=== PATIENT | male | born 1965 | race Caucasian/White ===

== ENCOUNTER 2019-04-13 17:15 | Emergency (ER) | payer OTHER ==
[2019-04-13 17:41] VITALS: BP 144/115; TEMP 97.7; O2SAT 96
--- NOTE | 2019-04-13 17:48 | ED.PDOC ---
History of Present Illness - General Chief Complaint: Skin/Abrasion/Tear Stated Complaint: Skin irritation to R wrist Time Seen by Provider: 04/13/19 17:19 Source: patient, RN notes reviewed, Vital Signs reviewed, RN/MD Additional Information: Patient presents for evaluation of rash to the RUE that occurred two days ago. He notes that the rash is improving. He denies any fevers, chills, nausea, or vomiting. He denies any new lotions, soaps, or detergents. He was outside working and brushed against some weeds prior to the rash starting. He notes that he has used topical hydrocortisone and aloe, which has helped improve the rash. He otherwise denies any complaints. - History of Present Illness Allergies/Adverse Reactions: Allergies Penicillins Allergy (Verified 04/13/19 17:41) Anaphylaxis Home Medications: Ambulatory Orders Aspirin [Aspirin Adult Low Dose] 81 mg PO DAILY 04/13/19 Cinnamon 2,000 mg PO BID 04/13/19 Metformin HCl [Glucophage] 1,000 mg PO BID 04/13/19 Review of Systems - Review of Systems Constitutional: Denies: chills, fever EENTM: States: no symptoms reported Respiratory: Denies: cough, short of breath Cardiology: Denies: chest pain Gastrointestinal/Abdominal: Denies: abdominal pain, nausea, vomiting Skin: States: rash Past Medical History (General) - Patient Medical History Hx Stroke: No Hx Asthma: Yes Hx Congestive Heart Failure: No Hx Diabetes: Yes - Vaccination History Hx Tetanus, Diphtheria Vaccination: - 2011 Hx Influenza Vaccination: Yes - 2017 Hx Pneumococcal Vaccination: Yes - 2013 - Social History Hx Tobacco Use: No Hx Alcohol Use: No Family Medical History - Family History Father Family History: No Known Living Status: Still Living Physical Exam - Physical Exam General Appearance: Alert, Comfortable, No apparent distress Neck: full range of motion, supple, normal inspection Cardiovascular/Chest: regular rate, rhythm, no edema, no gallop, no JVD, no murmur Respiratory: lungs clear, normal breath sounds, no respiratory distress, no accessory muscle use Gastrointestinal/Abdominal: non tender, soft Neurologic: alert, normal mood/affect, oriented x 3 Skin Exam: warm/dry Skin Problem Location: upper extremities - Right forearm Skin Character: rash, scales - red, scaly rash in a 5x6cm raised distribution. no surrounding erythema. No fluctuance or induration Progress - Progress Progress: DDx: Contact Dermatitis, Cellulitis, Poison Nimisha, drug reaction, allergic reaction 04/13/19 17:49 Patient presents for evaluation of rash to the RUE. He was overall well appearing and non-toxic. He has no systemic symptoms and denies fevers/chills. He has no recent exposures except for what he brushed into. His symptoms do not suggest an allergic reaction. He has no spreading of the rash elsewhere to suggest poison nimisha. His symptoms are suggestive of contact dermatitis as it is localized to the region that brushed against the shrubbery. He declined prednisone burst for concerns of blood sugar elevation. He will continue topical treatment at this time. he was advised to follow-up with PCP for re-evaluation. Departure - Departure Clinical Impression: Contact dermatitis Qualifiers: Contact dermatitis type: unspecified Contact dermatitis trigger: non-food plants Qualified Code(s): L25.5 - Unspecified contact dermatitis due to plants, except food Time of Disposition: 17:50 Disposition: Discharge to Home or Self Care Departure Forms: ED Discharge - Pt. Copy, Patient Portal Self Enrollment Instructions: Contact Dermatitis (DC) Diet: resume usual diet Activity: increase activity as tolerated Home Medications: Ambulatory Orders Aspirin [Aspirin Adult Low Dose] 81 mg PO DAILY 04/13/19 Cinnamon 2,000 mg PO BID 04/13/19 Metformin HCl [Glucophage] 1,000 mg PO BID 04/13/19 Comments: Vaibhav Angela D.O. [id number]
== END 2019-04-13 17:54 | disposition home or self-care (01) ==
LOC: ER 17:15
DX: L25.5 Unspecified contact dermatitis due to plants, except food (principal); E11.9 Type 2 diabetes mellitus without complications; J45.909 Unspecified asthma, uncomplicated; Z79.82 Long term (current) use of aspirin; Z79.4 Long term (current) use of insulin; Z88.0 Allergy status to penicillin

== ENCOUNTER 2020-06-12 17:29 | Emergency (ER) | payer OTHER ==
[2020-06-12 18:10] VITALS: BP 143/82; TEMP 97.7
--- NOTE | 2020-06-12 19:03 | ED.PDOC ---
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 It is actually hemostatic at this time. 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 The patient apparently received 5 units of packed red blood cells 3 days ago for significant anemia related to it. He has since discontinued all blood thinners. He is actually feeling much better. Apparently he had a urinary obstruction and was fluid overloading at the time as well. He has a suprapubic catheter in place at this time that appears to be draining well. He is a little bit sore from it. Otherwise he appears to be doing much better than he was a few days ago. No fevers. No chest pain. He does have some dyspnea on exertion but it is much improved from previous. He does still have trace edema to bilateral lower extremities but apparently much improved from previous. Timing/Duration: 1-3 hours Severity: mild Improving Factors: nothing Worsening Factors: nothing Associated Symptoms: shortness of breath Allergies/Adverse Reactions: Allergies Penicillins Allergy (Verified 06/12/20 18:10) Anaphylaxis Home Medications: Ambulatory Orders Aspirin [Aspirin Adult Low Dose] 81 mg PO DAILY 04/13/19 Cinnamon 2,000 mg PO BID 04/13/19 Metformin HCl [Glucophage] 1,000 mg PO BID 04/13/19 Fluticasone Propionate (Bulk) [Fluticasone Propionate] 1 pow XX 06/12/20 Lancets 06/12/20 Loratadine [Claritin] 10 mg PO 06/12/20 Metformin HCl [Fortamet] 06/12/20 Pravastatin Sodium 40 mg PO 06/12/20 Triamcinolone 0.1% Oint [Kenalog 0.1% Ointment] 1 applic TOP 06/12/20 Review of Systems - Review of Systems Constitutional: States: malaise EENTM: States: no symptoms reported Respiratory: States: short of breath Cardiology: States: no symptoms reported Gastrointestinal/Abdominal: States: no symptoms reported Genitourinary: States: see HPI Musculoskeletal: States: no symptoms reported Skin: States: no symptoms reported Neurological: States: no symptoms reported Endocrine: States: no symptoms reported All other Systems: No Change from Baseline Past Medical History (General) - Patient Medical History Hx Seizures: No Hx Stroke: No Hx Dementia: No Hx Asthma: Yes Hx of COPD: No Hx Cardiac Disorders: No Hx Congestive Heart Failure: No Hx Pacemaker: No Hx Hypertension: No Hx Thyroid Disease: No Hx Diabetes: Yes Hx Gastroesophageal Reflux: No Hx Renal Disease: No Hx Cancer: No - possible Hx of HIV: No Hx Hepatitis C: No Hx MRSA: No Surgical History: no surgical history - Vaccination History Hx Tetanus, Diphtheria Vaccination: - 2011 Hx Influenza Vaccination: Yes Hx Pneumococcal Vaccination: Yes - Social History Hx Tobacco Use: No Hx Alcohol Use: No Family Medical History - Family History Father Family History: No Known Living Status: Still Living Physical Exam - Physical Exam General Appearance: Alert, Comfortable, No apparent distress Eye Exam: bilateral normal Ears, Nose, Throat: hearing grossly normal, normal pharynx Neck: full range of motion, supple Respiratory: no respiratory distress, no accessory muscle use, rales - Very mild at the bases only at this point Cardiovascular/Chest: normal peripheral pulses, tachycardia - Sinus tachycardia that does improve with rest Peripheral Pulses: radial,right: 2+, radial,left: 2+ Gastrointestinal/Abdominal: non tender, soft Rectal Exam: deferred, other - Large penile mass that has had multiple bleeding spots but is currently hemostatic. Back Exam: no CVA tenderness, no vertebral tenderness Extremity: normal range of motion, non-tender, normal inspection, normal capillary refill, pedal edema - Trace bilaterally Neurologic: death claim examiner II-XII nml as tested, alert, normal mood/affect, oriented x 3 Skin Exam: normal color Comments: Vital Signs - 24 hr 06/12/20 06/12/20 06/12/20 17:58 17:59 18:29 Temperature 97.7 F Pulse Rate [ 124 H 120 H 101 H Right Radial] Respiratory 20 16 Rate Blood Pressure 143/82 143/82 [Left Arm] O2 Sat by Pulse 97 96 Oximetry Progress - Progress Progress: 06/12/20 19:04 The patient is a 55-year-old male presented emergency room secondary to spot 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 It is hemostatic at this point and the patient can use Vaseline gauze to keep from abrading the tip and causing further bleeding. He does need to keep on hold any blood thinners. He does need to keep follow-up on Monday with the specialist. His blood levels have improved significantly over the last 3 days which is a good sign. He needs to follow-up with his primary care doctor later this coming week. ER warnings are given. nay mcdonald [id number] - Results/Orders Results/Orders: Laboratory Tests 06/12/20 06/12/20 18:11 18:11 WBC 8.7 RBC 3.50 L Hgb 9.4 L Hct 27.5 L MCV 78.6 L MCH 26.8 L MCHC 34.1 RDW 28.7 H Plt Count 468 H MPV 6.6 L Absolute Neuts (auto) 6.50 Absolute Lymphs (auto) 1.20 Absolute Monos (auto) 0.80 Absolute Eos (auto) 0.10 Absolute Basos (auto) 0.10 Neutrophils % 74.2 Lymphocytes % 13.9 L Monocytes % 9.3 H Eosinophils % 1.6 Basophils % 1.0 Normal RBC Morphology Stain quality accept Sodium 131 L Potassium 3.9 Chloride 97 L Carbon Dioxide 25 Anion Gap 12.9 BUN 7 Creatinine 0.66 BUN/Creatinine Ratio 10.6 Random Glucose 191 H Serum Osmolality 265.8 L Calcium 9.0 Total Bilirubin 0.6 AST 16 ALT 14 Alkaline Phosphatase 60 Serum Total Protein 7.4 Albumin 3.3 Globulin 4.1 H Albumin/Globulin Ratio 0.8 L - EKG/XRAY/CT CT Ordered: No Departure - Departure Clinical Impression: Penile neoplasm Anemia Qualifiers: Anemia type: unspecified type Qualified Code(s): D64.9 - Anemia, unspecified Disposition: Discharge to Home or Self Care Condition: Fair Departure Forms: ED Discharge - Pt. Copy, Patient Portal Self Enrollment Diet: diabetic diet Activity: increase activity as tolerated Home Medications: Ambulatory Orders Aspirin [Aspirin Adult Low Dose] 81 mg PO DAILY 04/13/19 Cinnamon 2,000 mg PO BID 04/13/19 Metformin HCl [Glucophage] 1,000 mg PO BID 04/13/19 Fluticasone Propionate (Bulk) [Fluticasone Propionate] 1 pow XX 06/12/20 Lancets 06/12/20 Loratadine [Claritin] 10 mg PO 06/12/20 Metformin HCl [Fortamet] 11/27/20 Pravastatin Sodium 40 mg PO 06/12/20 Triamcinolone 0.1% Oint [Kenalog 0.1% Ointment] 1 applic TOP 06/12/20 Additional Instructions: The patient is a 55-year-old male presented emergency room secondary to spot 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 It is hemostatic at this point and the patient can use Vaseline gauze to keep from abrading the tip and causing further bleeding. He does need to keep on hold any blood thinners. He does need to keep follow-up on Monday with the specialist. His blood levels have improved significantly over the last 3 days which is a good sign. He needs to follow-up with his primary care doctor later this coming week. ER warnings are given.
[2020-06-12 19:14] VITALS: O2SAT 98
== END 2020-06-12 19:14 | disposition home or self-care (01) ==
LOC: ER 17:29
DX: D29.0 Benign neoplasm of penis (principal); D64.9 Anemia, unspecified; E11.9 Type 2 diabetes mellitus without complications; J45.909 Unspecified asthma, uncomplicated; Z79.82 Long term (current) use of aspirin; Z79.84 Long term (current) use of oral hypoglycemic drugs; Z79.899 Other long term (current) drug therapy; Z88.0 Allergy status to penicillin

== ENCOUNTER → 2020-06-24 | Outpatient (CLI) | payer OTHER | LOC: BFHH 15:50 | PROVIDERS: ATTEND Pediatrics | DX: D64.9 Anemia, unspecified (principal); E87.1 Hypo-osmolality and hyponatremia ==